=== PATIENT | male | born 1940 | race Caucasian/White ===

== ENCOUNTER 2023-01-17 07:57 | Outpatient (CLI) | payer MEDICARE, SELFPAY ==
[2023-01-17] VITALS (7 sets, daily range): BP systolic 98–110; BP diastolic 33–72; PULSE 57–82; RESP 14–16; TEMP 36–36.4; O2SAT 94–100; BMI 18.6
[2023-01-17] MEDS: Acetaminophen 500 MG Tablet 1000 MG PO (08:39)
[2023-01-17] MEDS: DiphenhydrAMINE 25 MG Capsule PO (08:40)
[2023-01-17] MEDS: Furosemide 20 MG/2 ML VIAL IV (11:52)
== END 2023-01-17 07:58 | disposition home or self-care (01) ==
LOC: MEDOUTP 07:58
PROVIDERS: PCP Family Medicine; Referring Provider Family Medicine; Visit Provider Family Medicine
DX: D50.9 Iron deficiency anemia, unspecified (principal)
CPT/HCPCS: 96374; 36430; 86850; 86870; 86900; 86901; J7040; P9016; A4216; J1940